=== PATIENT | male | born 1945 | race Caucasian/White ===

== ENCOUNTER → 2022-12-29 10:21 | Outpatient (CLI) | payer MEDICARE, OTHER, SELFPAY ==
--- NOTE | 2022-12-29 | DI.NM.S_ITS ---
PROCEDURE: NM [facility] PERF SPECT R&S PHARM Rest and pharmacological stress myocardial perfusion SPECT with gated imaging and ejection fraction RADIOPHARMACEUTICAL: 26.5 mCi Tc-99m tetrafosmin IV at rest and 26.6 mCi Tc-99m tetrafosmin IV at peak effect of pharmacological stress. [id number] was performed. INDICATIONS: Paroxysmal atrial fibrillation TECHNIQUE: Radiopharmaceutical was injected at peak stress test, and also at rest. SPECT images were obtained. SPECT myocardial perfusion images were displayed in short axis, horizontal long axis, and vertical long axis views. Gated images were reviewed using [employer] software. COMPARISON: None. CARDIAC STRESS: A pharmacologic stress test was performed under the supervision of an attending staff, using an infusion of lexiscan 0.4mg IV X1. Hemodynamic data: There is normal blood pressure and heart rate response to pharmacologic stress. Symptoms: The patient denied anginal chest pain. Aminophylline: none EKG: Sinus rhythm present throughout the study. No diagnostic changes of ischemia with lexiscan; rare PVCs present. FINDINGS: Raw data: There is good myocardial uptake of radiotracer. No significant motion artifacts. Left ventricle function: Gated images demonstrate normal left ventricular wall thickening. No segmental wall motion abnormalities. No transient ischemic dilation; TID is 0.93 (normal less than 1.3). Left ventricle resting end diastolic volume is 126 mL. Left ventricle stress ejection fraction is 73%; normal range is above 45%. Myocardial perfusion: There is a mildly intense mostly fixed basal to mid inferior wall defect that doesn't improve with prone imaging, suggesting prior infarction with modest ischemia. SSS 3, SRS 1. IMPRESSION: Abnormal pharm nuclear stress test 1) There is a mildly intense mostly fixed basal to mid inferior wall defect that doesn't improve with prone imaging, suggesting prior infarction with modest ischemia. SSS 3, SRS 1. 2) Normal left ventricular size, wall motion, and systolic function (EF post stress 73%). 3) No ST changes with lexiscan. 4) No angina during the study. 5) No prior nuclear stress test available for comparison. Dictated by: Niecy Rodriguez MD on 01/02/2023 at 14:00 Approved by: Niecy Rodriguez MD on 01/02/2023 at 14:03
== END ==
PROVIDERS: PCP Physician Assistant Medical; Referring Provider Nurse Practitioner Family; Visit Provider Nurse Practitioner Family
DX: I47.20 Ventricular tachycardia, unspecified (principal); I48.0 Paroxysmal atrial fibrillation; R94.39 Abnormal result of other cardiovascular function study
CPT/HCPCS: 78452; 93017; A9502; J2785

== ENCOUNTER → 2024-06-10 08:49 | Outpatient (CLI) | payer MEDICARE, OTHER, SELFPAY ==
--- NOTE | 2024-06-10 08:50 | DI.NM.S_ITS ---
PROCEDURE: MD [facility] PERF SPECT R&S PHARM Rest and pharmacological stress myocardial perfusion SPECT with gated imaging and ejection fraction RADIOPHARMACEUTICAL: 12.6 mCi Tc-99m tetrafosmin IV at rest and 26.7 mCi Tc-99m tetrafosmin IV at peak effect of pharmacological stress. [id number] was performed. INDICATIONS: Atrial fibrillation/flutter TECHNIQUE: Radiopharmaceutical was injected at peak stress test, and also at rest. SPECT images were obtained. SPECT myocardial perfusion images were displayed in short axis, horizontal long axis, and vertical long axis views. Gated images were reviewed using [employer] software. COMPARISON: None. CARDIAC STRESS: A pharmacologic stress test was performed under the supervision of an attending staff, using an infusion of regadenoson 0.4 mg IV. Hemodynamic data: There is normal blood pressure and heart rate response to pharmacologic stress. Symptoms: The patient denied anginal chest pain. EKG: No diagnostic changes of ischemia; no ectopy. FINDINGS: Raw data: There is good myocardial uptake of radiotracer. No significant motion artifacts. Hgvu-kn-wlyrd ratio is 0.28 (normal is less than 0.38 for tetrafosmin tracer). Left ventricle function: Gated images demonstrate normal left ventricular wall thickening. No segmental wall motion abnormalities. No transient ischemic dilation; TID is 1.10 (normal less than 1.3). Left ventricle resting end diastolic volume is 127 mL. Left ventricle stress ejection fraction is 71%; normal range is above 45%. Myocardial perfusion: There is a small size, mild intensity fixed apical lateral wall defect that completely resolves in prone imaging. No reversible perfusion defects. IMPRESSION: Low risk study. No evidence of pharmacologic induced ischemia or scar. Increased calculated LVEDV at 127 mL. Normal LV function. Dictated by: Saray Parker D.O. on 06/10/2024 at 16:55 Approved by: Saray Parker D.O. on 06/10/2024 at 16:58
== END ==
PROVIDERS: PCP Physician Assistant Medical; Referring Provider Internal Medicine Cardiovascular Disease; Visit Provider Internal Medicine Cardiovascular Disease
DX: I48.19 Other persistent atrial fibrillation (principal); I48.3 Typical atrial flutter; I51.7 Cardiomegaly; R06.09 Other forms of dyspnea; I10 Essential (primary) hypertension; J43.8 Other emphysema
CPT/HCPCS: 78452; 93017; A9502; J2785